=== PATIENT | female | born 1940 | race Caucasian/White ===

== ENCOUNTER 2020-06-09 10:24 | Day surgery (SDC) | payer MEDICARE, OTHER, SELFPAY ==
[2020-06-09 10:46] VITALS: BP 145/75; PULSE 106; RESP 16; TEMP 36.9; O2SAT 98
[2020-06-09] MEDS: Tropicam./Phenyleph. (1/2.5%) 5 ML BTL OS ×3 (11:01→11:12)
--- NOTE | 2020-06-09 11:35 | ROE_ITS ---
Date of service: 06/09/20 Time of Service: 11:35 Operative Note Operative Note DATE OF PROCEDURE: 06/09/20 PRE-OP DIAGNOSIS: Nuclear cataract, left eye POST-OP DIAGNOSIS: same PROCEDURE: Cataract extraction using phacoemulsification with intraocular lens implant, left eye SURGEON: Alexey Heredia ANESTHESIA TYPE: Local By Surgeon and MAC Refer to Anesthesia Record PATHOLOGY: none sent COMPLICATIONS: None Patient was transported to: same day Patient's condition: stable Implants: Fantasma and Fantasma Vision / [employer] Tecnis ZCB00 Indications: Progressive decreased vision due to cataract, left eye Procedure Description: CATARACT SURGERY OPERATIVE REPORT PREOPERATIVE DIAGNOSIS: Nuclear cataract, left eye POSTOPERATIVE DIAGNOSIS: Same OPERATION: Cataract extraction using phacoemulsification with posterior chamber intraocular lens implant, left eye. IOL: IOL Environmental Emergencies Assistant/Model: [employer] Vision / SAMSON Tecnis ZCB00 IOL Power: + 22.5 diopters IOL Serial Number: [id number] Optic Diameter: 6.0mm Haptic/Overall Diameter: 13.0mm PHACO INFO: [email or web address] Vision System with OZil and Active Fluidics Cumulative Dispersed Energy (CDE): 11.3 seconds SURGEON: Alexey Heredia MD, EDMOND ANESTHESIA: Monitored Anesthesia Care (MAC), with local sub-tenon's anesthetic infiltration COMPLICATIONS: None SPECIMENS: None INDICATIONS FOR PROCEDURE: Patient is a 75-year-old gentleman with history of progressive decreased vision in his left eye. Significantly symptomatic that he desired cataract surgery and attempt to improve and maximize his vision.+ PROCEDURE: The correct surgical eye was identified and marked as the left eye and the pupil was dilated in the preoperative area using mydriatics and cycloplegics. The dilated pupil size was 7.0 mm. He elected to proceed without sedation. The patient was brought to the operating room where cardiopulmonary monitoring was instituted and surgical time-out was performed, confirming the correct operative eye and IOL power. Topical anesthesia was administered and ophthalmic povidone-iodine 5% was instilled into the conjunctival fornices. Lidocaine gel was applied to the cornea and the bob-ocular area was prepped with Betadine 10% solution and draped in the usual sterile fashion for intraocular surgery, including an aperture drape. A Tegaderm transparent film dressing was cut in half and used to cover the lashes and lid margins. Care was taken to sequester the lashes and lid margins under the Tegaderm dressing. A lid speculum was placed between the lids of the operative eye and the Sully-Jessy operating microscope was maneuvered into position. Zane scissors were then used to make a conjunctival buttonhole approximately 6mm posterior to the limbus in the inferonasal quadrant. Blunt dissection was carried out to expose bare sclera, and a blunt-tipped sub-tenon?s anesthesia cannula was introduced and passed posteriorly along the globe where non- preserved plain lidocaine was injected into posterior sub-Tenon?s space. A side port knife was used to make a paracentesis port superior/superiortemporally. Intraocular phenylephrine/lidocaine was injected into the anterior chamber. The anterior chamber was then filled with viscoelastic. A 2.4mm keratome knife was used to create a half-thickness groove at the limbus and then to construct a three-plane near-clear corneal tunnel extending 2.0mm into clear cornea in the temporal position. . A flap was raised on the anterior capsule and capsulorhexis forceps were used to complete a continuous curvilinear capsulorhexis of 5.5 mm. Balanced salt solution was then used to perform cortical cleaving hydrodissection and nuclear hydrodelineation until the lens could be freely rotated within the capsular bag. The lens nucleus was then disassembled and removed within the capsular bag and iris plane using phacoemulsification. Residual cortical material was removed using the 45-degree angled silicone I/A tip with 0.3mm port. The posterior capsule was carefully polished to remove as much residual lens epithelial cells as safely possible. The capsular bag was then inflated and the anterior chamber deepened with viscoelastic. The lens implant described above was inserted into the capsular bag using the SAMSON [place] Injector. A Kuglen hook was used to dial the IOL into position. Residual viscoelastic was then removed first from posterior to the IOL, then from the anterior chamber using the I/A handpiece. The lens implant was noted to center nicely within the capsular bag. The incisions were stromally hydrated, and the anterior chamber was reformed using BSS. Then 0.5cc of moxifloxacin 1.0mg/ml were injected into the capsular bag and anterior chamber. The incisions were checked with a Weck spear and found to be secure. Several drops of ophthalmic povidone-iodine 5% were then applied to the eye followed by two drops of Imprimis combination prednisolone/moxifloxacin/nepafenac solution. The drapes were removed and a clear plastic protective eye shield was placed over the eye. The patient was then returned to Same Day Surgery in stable condition.
[2020-06-09] MEDS: Tetracaine 0.5% 4 ML BTL OS (11:47)
[2020-06-09] MEDS: Balanced Salt Soln.-PLUS 500 ML BAG (11:48)
[2020-06-09] MEDS: Duovisc Viscoelastic System EACH 1 EACH (11:49)
[2020-06-09] MEDS: Lidocaine 1% Pres-Free 5 ML VIAL (11:49)
[2020-06-09] MEDS: Lidocaine 2% Jelly 6 ML SYR (11:50)
[2020-06-09] MEDS: Povidone-Iodine Ophth 30 ML BTL (11:51)
--- NOTE | 2020-06-09 12:25 | W.PM.DSUDISC ---
Discharge Plan Disposition Patient Disposition: HOME Condition: Good Discharge Details Attending Provider: Alexey Heredia Primary Care Provider: Topher Morales Home Meds and New Rx's Prescriptions: No Action cholecalciferol (vitamin D3) [Vitamin D3] 1,000 UNIT capsule 1,000 unit PO DAILY RF: 0 Fish Oil 1 EACH capsule 1 ea PO DAILY RF: 0 flaxseed oil 1,000 mg Capsule 1,000 mg PO DAILY RF: 0 Macular Health Formula 5-1-7.5 mg Capsule 1 cap PO DAILY RF: 0 magnesium 250 mg Tablet 250 mg PO DAILY RF: 0 Tumeric 400 mg PO DAILY RF: 0 Discharge Instructions Stand Alone Forms: Post-op Topical Cataract, Georgie Dumont (DSU) Discharge Orders Discharge Orders: Discharge Order (Routine); Ordered 06/09/20 Ordered By: Alexey Heredia DS: Diagnosis Discharge Diagnosis (1) Cortical cataract of left eye: Status: Resolved (2) Nuclear sclerotic cataract of left eye: Status: Resolved
--- NOTE | 2020-06-09 12:26 | ROE_ITS ---
Date of service: 06/09/20 Time of Service: 12:26 Operative Note Operative Note DATE OF PROCEDURE: 06/09/20 PRE-OP DIAGNOSIS: Nuclear/cortical cataract, left eye POST-OP DIAGNOSIS: same PROCEDURE: Fantasma and [employer]asma Vision / [employer] Tecnis ZCB00 SURGEON: Alexey Heredia ANESTHESIA TYPE: Local By Surgeon and MAC Refer to Anesthesia Record PATHOLOGY: none sent COMPLICATIONS: None Patient was transported to: same day Patient's condition: stable Implants: Fantasma and Fantasma Vision / [employer] Tecnis ZCB00 Indications: Progressive decreased vision due to cataract, left eye Procedure Description: CATARACT SURGERY OPERATIVE REPORT PREOPERATIVE DIAGNOSIS: Nuclear/cortical cataract, left eye POSTOPERATIVE DIAGNOSIS: Same OPERATION: Cataract extraction using phacoemulsification with posterior chamber intraocular lens implant, left eye. IOL: IOL Machine Accountant/Model: [employer] Vision / SAMSON [employer] ZCB00 IOL Power: + 22.0 diopters IOL Serial Number: [id number] Optic Diameter: 6.0mm Haptic/Overall Diameter: 13.0mm PHACO INFO: [employer] Vision System with OZil and Active Fluidics Cumulative Dispersed Energy (CDE): 8.48 seconds SURGEON: Alexey Hereida MD, EDMOND ANESTHESIA: Monitored Anesthesia Care (MAC), with local sub-tenon's anesthetic infiltration COMPLICATIONS: None SPECIMENS: None INDICATIONS FOR PROCEDURE: The patient is an 80-year-old lady with history of diminished visual acuity in her left eye secondary to the development of nuclear and cortical cataract. She is significantly symptomatic that she desired cataract surgery attempt to improve and maximize her vision. PROCEDURE: The correct surgical eye was identified and marked as the left eye and the pupil was dilated in the preoperative area using mydriatics and cycloplegics. The dilated pupil size was 7.5 mm. Oral sedation was administered in the form of an Imprimis MKO Melt (midazolam 3mg/ketamine 25mg/ondansetron 2mg). The patient was brought to the operating room where cardiopulmonary monitoring was instituted and surgical time-out was performed, confirming the correct operative eye and IOL power. Topical anesthesia was administered and ophthalmic povidone-iodine 5% was instilled into the conjunctival fornices. Lidocaine gel was applied to the cornea and the bob-ocular area was prepped with Betadine 10% solution and draped in the usual sterile fashion for intraocular surgery, including an aperture drape. A Tegaderm transparent film dressing was cut in half and used to cover the lashes and lid margins. Care was taken to sequester the lashes and lid margins under the Tegaderm dressing. A lid speculum was placed between the lids of the operative eye and the Sully-Jessy operating microscope was maneuvered into position. Zane scissors were then used to make a conjunctival buttonhole approximately 6mm posterior to the limbus in the inferonasal quadrant. Blunt dissection was carried out to expose bare sclera, and a blunt-tipped sub-tenon?s anesthesia cannula was introduced and passed posteriorly along the globe where non- preserved plain lidocaine was injected into posterior sub-Tenon?s space. A sideport knife was used to make a paracentesis port superior/superiortemporally. Intraocular phenylephrine/lidocaine was injected into the anterior chamber. The anterior chamber was then filled with viscoelastic. A 2.4mm keratome knife was used to create a half-thickness groove at the limbus and then to construct a three-plane near-clear corneal tunnel extending 2.0mm into clear cornea in the temporal position. . A flap was raised on the anterior capsule and capsulorhexis forceps were used to complete a continuous curvilinear capsulorhexis of 5.5 mm. Balanced salt solution was then used to perform cortical cleaving hydrodissection and nuclear hydrodelineation until the lens could be freely rotated within the capsular bag. The lens nucleus was then disassembled and removed within the capsular bag and iris plane using phacoemulsification. Residual cortical material was removed using the 45-degree angled silicone I/A tip with 0.3mm port. The posterior capsule was carefully polished to remove as much residual lens epithelial cells as safely possible. The capsular bag was then inflated and the anterior chamber deepened with viscoelastic. The lens implant described above was inserted into the capsular bag using the SAMSON [place] Injector. A Kuglen hook was used to dial the IOL into position. Residual viscoelastic was then removed first from posterior to the IOL, then from the anterior chamber using the I/A handpiece. The lens implant was noted to center nicely within the capsular bag. The incisions were stromally hydrated, and the anterior chamber was reformed using BSS. Then 0.5cc of moxifloxacin 1.0mg/ml were injected into the capsular bag and anterior chamber. The incisions were checked with a Weck spear and found to be secure. Several drops of ophthalmic povidone-iodine 5% were then applied to the eye followed by two drops of Imprimis combination prednisolone/moxifloxacin/nepafenac solution. The drapes were removed and a clear plastic protective eye shield was placed over the eye. The patient was then returned to Same Day Surgery in stable condition.
== END 2020-06-09 12:50 | disposition home or self-care (01) ==
PROVIDERS: PCP Family Medicine; Visit Provider Ophthalmology
PROC: (CPT 66984; principal; 2020-06-09 13:30)
DX: H25.12 Age-related nuclear cataract, left eye (principal); H25.012 Cortical age-related cataract, left eye; I10 Essential (primary) hypertension
CPT/HCPCS: 66984; V2632

== ENCOUNTER 2020-06-23 07:04 | Day surgery (SDC) | payer MEDICARE, OTHER, SELFPAY ==
[2020-06-23 06:58] VITALS: BP 152/76; PULSE 64; RESP 16; TEMP 36.4; O2SAT 96
[2020-06-23] MEDS: Lidocaine 1% Pres-Free 5 ML VIAL (07:35)
[2020-06-23] MEDS: Balanced Salt Soln.-PLUS 500 ML BAG (07:37)
[2020-06-23] MEDS: Povidone-Iodine Ophth 30 ML BTL (07:39)
[2020-06-23] MEDS: Lidocaine 2% Jelly 6 ML SYR (07:39)
[2020-06-23] MEDS: Tetracaine 0.5% 4 ML BTL OD (07:40)
[2020-06-23] MEDS: Duovisc Viscoelastic System EACH 1 EACH (07:41)
--- NOTE | 2020-06-23 07:56 | W.PM.DSUDISC ---
Discharge Plan Disposition Patient Disposition: HOME Condition: Good Discharge Details Attending Provider: Alexey Heredia Primary Care Provider: Topher Morales Home Meds and New Rx's Prescriptions: No Action cholecalciferol (vitamin D3) [Vitamin D3] 1,000 UNIT capsule 1,000 unit PO DAILY RF: 0 Fish Oil 1 EACH capsule 1 ea PO DAILY RF: 0 atorvastatin 20 mg tablet 20 mg PO DAILY RF: 0 flaxseed oil 1,000 mg Capsule 1,000 mg PO DAILY RF: 0 Macular Health Formula 5-1-7.5 mg Capsule 1 cap PO DAILY RF: 0 magnesium 250 mg Tablet 250 mg PO DAILY RF: 0 Tumeric 400 mg PO DAILY RF: 0 Discharge Instructions Stand Alone Forms: Post-op Block Cataract Discharge Orders Discharge Orders: Discharge Order (Routine); Ordered 06/23/20 Ordered By: Alexey Heredia DS: Diagnosis Discharge Diagnosis (1) Cortical cataract of right eye: Status: Resolved (2) Nuclear sclerotic cataract of right eye: Status: Resolved
--- NOTE | 2020-06-23 07:57 | ROE_ITS ---
Date of service: 06/23/20 Time of Service: 07:57 Operative Note Operative Note DATE OF PROCEDURE: 06/23/20 PRE-OP DIAGNOSIS: Nuclear/cortical cataract, right eye POST-OP DIAGNOSIS: same PROCEDURE: Cataract extraction using phacoemulsification with intraocular lens implant, right eye SURGEON: Alexey Heredia ANESTHESIA TYPE: Local By Surgeon and MAC Refer to Anesthesia Record ESTIMATED BLOOD LOSS: 0 PATHOLOGY: none sent COMPLICATIONS: None Patient was transported to: same day Patient's condition: stable Implants: Fantasma and Fantasma Vision / [employer] Tecnis ZCB00 intraocular lens Indications: Progressive decreased vision due to cataract, right eye Procedure Description: CATARACT SURGERY OPERATIVE REPORT PREOPERATIVE DIAGNOSIS: Nuclear/cortical cataract, right eye POSTOPERATIVE DIAGNOSIS: Same OPERATION: Cataract extraction using phacoemulsification with posterior chamber intraocular lens implant, right eye. IOL: IOL Defensive Secondary Coach/Model: [employer] Vision / [employer] ZCB00 IOL Power: + 21.5 diopters IOL Serial Number: [id number] Optic Diameter: 6.0mm Haptic/Overall Diameter: 13.0mm PHACO INFO: [employer] Vision System with OZil and Active Fluidics Cumulative Dispersed Energy (CDE): 7.10 seconds SURGEON: Alexey Heredia MD, EDMOND ANESTHESIA: Monitored Anesthesia Care (MAC), with local sub-tenon's anesthetic infiltration COMPLICATIONS: None SPECIMENS: None INDICATIONS FOR PROCEDURE: Patient is an 80-year-old lady with history of diminished visual acuity in both eyes secondary to the development of bilateral nuclear and cortical cataract. She has already undergone cataract surgery and the left eye is doing well postoperatively. She now presents for cataract surgery in the right eye. PROCEDURE: The correct surgical eye was identified and marked as the right eye and the pupil was dilated in the preoperative area using mydriatics and cycloplegics. The dilated pupil size was 7.0 mm. She elected to proceed without oral sedation. The patient was brought to the operating room where cardiopulmonary monitoring was instituted and surgical time-out was performed, confirming the correct operative eye and IOL power. Topical anesthesia was administered and ophthalmic povidone-iodine 5% was instilled into the conjunctival fornices. Lidocaine gel was applied to the cornea and the bob-ocular area was prepped with Betadine 10% solution and draped in the usual sterile fashion for intraocular surgery, including an aperture drape. A Tegaderm transparent film dressing was cut in half and used to cover the lashes and lid margins. Care was taken to sequester the lashes and lid margins under the Tegaderm dressing. A lid speculum was placed between the lids of the operative eye and the Sully-Jessy operating microscope was maneuvered into position. Zane scissors were then used to make a conjunctival buttonhole approximately 6mm posterior to the limbus in the inferonasal quadrant. Blunt dissection was carried out to expose bare sclera, and a blunt-tipped sub-tenon?s anesthesia cannula was introduced and passed posteriorly along the globe where non- preserved plain lidocaine was injected into posterior sub-Tenon?s space. A sideport knife was used to make a paracentesis port inferiortemporally. Intraocular phenylephrine/lidocaine was injected into the anterior chamber. The anterior chamber was then filled with viscoelastic. A 2.4mm keratome knife was used to create a half-thickness groove at the limbus and then to construct a three-plane near-clear corneal tunnel extending 2.0mm into clear cornea in the superiortemporal position. . A flap was raised on the anterior capsule and capsulorhexis forceps were used to complete a continuous curvilinear capsulorhexis of 5.0 mm. Balanced salt solution was then used to perform cortical cleaving hydrodissection and nuclear hydrodelineation until the lens could be freely rotated within the capsular bag. The lens nucleus was then disassembled and removed within the capsular bag and iris plane using phacoemulsification. Residual cortical material was removed using the I/A handpiece. The posterior capsule was carefully polished to remove as much residual lens epithelial cells as safely possible. The capsular bag was then inflated and the anterior chamber deepened with viscoelastic. The lens implant described above was inserted into the capsular bag using the SAMSON [place] Injector. A Kuglen hook was used to dial the IOL into position. Residual viscoelastic was then removed first from posterior to the IOL, then from the anterior chamber using the I/A handpiece. The lens implant was noted to center nicely within the capsular bag. The incisions were stromally hydrated, and the anterior chamber was reformed using BSS. Then 0.5cc of moxifloxacin 1.0mg/ml were injected into the capsular bag and anterior chamber. The incisions were checked with a Weck spear and found to be secure. Several drops of ophthalmic povidone-iodine 5% were then applied to the eye followed by two drops of Imprimis combination prednisolone/moxifloxacin/nepafenac solution. The drapes were removed and a clear plastic protective eye shield was placed over the eye. The patient was then returned to Same Day Surgery in stable condition.
== END 2020-06-23 08:25 | disposition home or self-care (01) ==
PROVIDERS: PCP Family Medicine; Visit Provider Ophthalmology
PROC: (CPT 66984; principal; 2020-06-23 07:30)
DX: H25.011 Cortical age-related cataract, right eye (principal); H25.11 Age-related nuclear cataract, right eye; Z96.1 Presence of intraocular lens; Z98.42 Cataract extraction status, left eye
CPT/HCPCS: 66984; V2632